=== PATIENT | female | born 1970 | race Hispanic/Latino ===

== ENCOUNTER 2017-10-10 11:12 | Day surgery (SDC) | payer BC ==
[2017-10-10] MEDS ORDERED: Ringers Lactate 1,000 ML IV ONE (11:43)
[2017-10-10] MEDS ORDERED: CEFAZOLIN/SWI 1gm 1 GM/10 ML SYR ONE (11:43)
--- NOTE | 2017-10-10 11:51 | RAD REPORT ---
EXAM DESCRIPTION: RAD - Chest Pa And Lat (2 Views) - 10/10/2017 11:45 am CLINICAL HISTORY: Abdominal pain. COMPARISON: None. FINDINGS: The lungs are clear. The heart is normal in size. No displaced fractures. IMPRESSION: No acute or concerning finding suspected.
[2017-10-10 11:59] LABS: Potassium 3.9 mEq/L (3.6-5.0)
[2017-10-10 12:15] LABS: Absolute Lymphocytes (CBC) 1.2 K/uL (0.7-4.9); Absolute Monocytes 0.7 K/uL (0.1-1.3); Absolute Neutrophil 9.6 K/uL (1.8-8.0); Basophils % 0.4 % (0-1.3); Eosinophils % 0.5 % (0-4.4); Hematocrit 39.6 % (36.0-45.0); Lymphocytes % 10.3 % (15.3-44.8); MCV 92.4 fL (80-100); MPV 11.5 fL (7.6-11.3); Monocytes % 5.7 % (3.3-12.3); RBC Red Blood Cell Count 4.28 M/uL (3.86-4.86)
[2017-10-10] MEDS ORDERED: MIDAZOLAM HCL 2 MG/2 ML INJ ONE (12:37)
[2017-10-10] MEDS ORDERED: PROPOFOL 200 MG/20 ML VIAL IV ONE (12:41)
[2017-10-10] MEDS ORDERED: LIDOCAINE 2% MPF 5 ML VIAL ONE (12:42)
[2017-10-10] MEDS ORDERED: FENTANYL CITR 100 MCG/2 ML ONE (12:43)
[2017-10-10] MEDS ORDERED: MEPERIDINE HCL 25 MG/0.5 ML ONE (13:40)
[2017-10-10] MEDS ORDERED: PROMETHAZINE 25 MG/ML VIAL ONE (13:40)
--- NOTE | 2017-10-10 14:01 | P.BOP ---
Preoperative diagnosis: Right buttock abscess, cellulitis Postoperative diagnosis: same Primary procedure: Incision and drainage of complex right buttock abscess 14 x 6 x3cm Estimated blood loss: <20cc Specimen: pus and necrotic tissue Findings: see dictation Anesthesia: General Complications: None Drain(s): Other Transferred to: Recovery Room Condition: Good
--- NOTE | 2017-10-10 14:35 | EKG ---
Test Date: 2017-10-10 Test Time: 11:16:56 Call Center Receptionist: CASEY MEASUREMENT RESULTS: Intervals: Rate: 78 CT: 140 QRSD: 92 QT: 378 QTc: 430 [place]: P: 21 CT: 140 QRS: 15 T: 9 INTERPRETIVE STATEMENTS: Normal sinus rhythm Normal ECG Compared to ECG 10/18/2004 00:00:00 Sinus bradycardia no longer present Electronically Signed On 10-10-17 14:33:45 CDT by Jose Larson
[2017-10-10] MEDS ORDERED: HYDROCODONE/APAP 5/325 MG TAB ONE (14:40)
--- NOTE | 2017-10-15 17:25 | OP ---
Date of Procedure: 10/10/2017 Surgeon: Dao Mahajan MD Preoperative Diagnoses: Right buttock abscess and cellulitis. Postoperative Diagnoses: Right buttock abscess and cellulitis. Procedure: Incision and drainage of a complex right buttock abscess, 14 x 6 x 3 cm. Estimated Blood Loss: Less than 20 cc. Specimen: Pus and necrotic tissue. Findings: Deep complex right buttock abscess. Anesthesia: General plus local. Indications: This is the case of a female, who comes to us with above diagnosis. Fully explained th e benefits, alternatives, and risks of incision and drainage of the abscess in the buttocks, which in cluded, but not limited to infection, bleeding, damage to adjacent structures, anesthesia complicatio n, recurrence, NC, and even . She also understands this may not relieve any symptoms. She migh t need more than one surgical intervention. She also understands the importance of wound care and fo llowup in our office. She understood and signed a consent. Description Of Procedure: The patient was brought to the operating room and placed in supine positio n. Anesthesia was given without complications. The patient was placed in lateral decubitus position with proper protection. The right buttocks were prepped and draped in a sterile fashion. A time-ou t was called. An incision was made in that area. Immediately, we obtain pus. There was some necrot ic tissue. This goes deep into the buttock region, does not seem to be traveling into the rectum, bu t it goes near the muscle with the fascia, so that was removed, a part of the fascia and the fat, but muscle was not penetrate or removed. The area was irrigated. Hemostasis was obtained. After that, the area was packed with wet-to-dry dressing. The patient tolerated the procedure well. The patien t was sent to recovery in stable condition. NIKITA/MASSIMO Voice ID: [id number] Report ID: [id number]
== END 2017-10-10 15:50 | disposition home or self-care (01) ==
LOC: OR 11:12
PROVIDERS: ATTEND Surgery
PROC: 0J990ZZ Drainage of Buttock Subcutaneous Tissue and Fascia, Open Approach (ICD-10-PCS; principal; 2017-10-10 12:30)
DX: L02.31 Cutaneous abscess of buttock (principal); I10 Essential (primary) hypertension; Z82.49 Family history of ischemic heart disease and other diseases of the circulatory system; Z83.3 Family history of diabetes mellitus
CPT/HCPCS: 36415; 71046; 80048; 81025; 85025; 87070; 87075; 87077; 87186; 87205; 88304; 93005; J0690; J2175; J2250; J2550; J3010

== ENCOUNTER 2018-07-16 12:44 | Emergency (ER) | payer BC ==
--- NOTE | 2018-07-16 13:50 | EDPHYS ---
Physician Documentation [facility] Name: Bety Amador Age: 48 yrs Sex: Female : 1970 Arrival Date: 07/16/2018 Time: 12:47 Bed 12 Private MD: Julia Johnson K ED Physician Efrain Dallas HPI: 07/16 13:42 This 48 yrs old Female presents to ER via Ambulatory with complaints of calf rn injury. 13:42 The patient presents with an injury, pain. The complaints affect the right calf. Onset: rn The symptoms/episode began/occurred just prior to arrival. Modifying factors: The symptoms are alleviated by nothing. the symptoms are aggravated by weight bearing. Severity of symptoms: At their worst the symptoms were moderate, in the emergency department the symptoms are unchanged. The patient has not experienced similar symptoms in the past. Reports making her bed, was plantar flexed and "reaching", heard a pop, hard to walk now, + focal swelling right medial calf. No direct trauma. No achilles tenderness. . 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 - Social history:: Smoking status: Patient/guardian denies using tobacco. - Ebola Screening: : Patient negative for fever greater than or equal to 101.5 degrees Fahrenheit, and additional compatible Ebola Virus Disease symptoms Patient denies exposure to infectious person Patient denies travel to an Ebola-affected area in the 21 days before illness onset No symptoms or risks identified at this time. - Family history:: not pertinent. - Hospitalizations: : No recent hospitalization is reported. ROS: 13:44 Constitutional: Negative for fever, chills, and weight loss, MS/Extremity: + right calf rn pain Neuro: Negative for weakness, numbness, tingling Exam: 13:44 Constitutional: This is a well developed, well nourished patient who is awake, alert, rn and in no acute distress. MS/ Extremity: Pulses equal, no cyanosis. Neurovascular intact. + painful ROM but has intact active and passive plantar flexion/extension, + focal tenderness right medial/proximal calf muscle with lump palpated. Vital Signs: 13:32 BP 132 / 91; Pulse 71; Resp 18; Temp 97.3; Pulse Ox 99% ; Weight 77.11 kg; Height 5 ft. sg 1 in. (154.94 cm); Pain 6/10; 13:32 Body Mass Index 32.12 (77.11 kg, 154.94 cm) sg MDM: 13:44 Differential diagnosis: tendonitis, calf strain/pulled muscle/rupture. Data reviewed: rn vital signs, nurses notes, and as a result, I will discharge patient. Counseling: I had a detailed discussion with the patient and/or guardian regarding: the historical points, exam findings, and any diagnostic results supporting the discharge/admit diagnosis, the need for outpatient follow up, to return to the emergency department if symptoms worsen or persist or if there are any questions or concerns that arise at home. Special discussion: I discussed with the patient/guardian in detail that at this point there is no indication for admission to the hospital. It is understood, however, that if the symptoms persist or worsen the patient needs to return immediately for re-evaluation. Based on the history and exam findings, there is no indication for further emergent testing or inpatient evaluation. I discussed with the patient/guardian the need to see the orthopedic surgeon for further evaluation of the symptoms. 13:48 Patient medically screened. rn 07/16 13:42 Order name: Splint - Posterior Leg; Complete Time: 14:58 rn 07/16 13:42 Order name: Crutches; Complete Time: 14:58 rn Administered Medications: No medications were administered Disposition: 07/16/18 13:48 Discharged to Home. Impression: Strain of other muscle(s) and tendon(s) of posterior muscle group at lower leg level, right leg. - Condition is Stable. - Discharge Instructions: Muscle Strain, RICE for Routine Care of Injuries. - Prescriptions for Tylenol- Codeine #3 300-30 mg Oral Tablet - take 1 tablet by ORAL route every 6 hours As needed; 15 tablet. Cyclobenzaprine 5 mg Oral Tablet - take 1 tablet by ORAL route 3 times per day As needed; 15 tablet. - Medication Reconciliation Form, Thank You Letter, Antibiotic Education, Prescription Opioid Use, Work release form form. - Follow up: Julia Johnson MD; When: As needed; Reason: Recheck today's complaints, Re-evaluation by your physician. Follow up: Russell Hyde MD; When: As needed; Reason: Recheck today's complaints, Re-evaluation by your physician. - Problem is new. - Symptoms have improved. Signatures: Joshua Crowley RN RN sg Efrain Dallas MD MD rn Baxter, Heather, RN RN hb Corrections: (The following items were deleted from the chart) 15:12 13:48 07/16/2018 13:48 Discharged to Home. Impression: Strain of other muscle(s) and hb tendon(s) of posterior muscle group at lower leg level, right leg. Condition is Stable. Forms are Medication Reconciliation Form, Thank You Letter, Antibiotic Education, Prescription Opioid Use. Follow up: Dr. Russell Hyde; When: As needed; Reason: Recheck today's complaints, Re-evaluation by your physician. Problem is new. Symptoms have improved. rn
--- NOTE | 2018-07-16 13:50 | ER ---
Nurse's Notes [facility] Name: Bety Amador Age: 48 yrs Sex: Female : 1970 Arrival Date: 07/16/2018 Time: 12:47 Bed 12 Private MD: Julia Johnson K Diagnosis: Strain of other muscle(s) and tendon(s) of posterior muscle group at lower leg level, right leg Presentation: 07/16 13:28 Presenting complaint: Patient states: Left sided calf pain, was making the bed when I sg felt a pop in the calf, pain in the left calf with swelling, worsens with weightbearing and walking. Transition of care: patient was not received from another setting of care. Onset of symptoms was July 16, 2018. Risk Assessment: Do you want to hurt yourself or someone else? Patient reports no desire to harm self or others. Initial Sepsis Screen: Does the patient meet any 2 criteria? No. Patient's initial sepsis screen is negative. Does the patient have a suspected source of infection? No. Patient's initial sepsis screen is negative. Care prior to arrival: None. 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 - Social history:: Smoking status: Patient/guardian denies using tobacco. - Ebola Screening: : Patient negative for fever greater than or equal to 101.5 degrees Fahrenheit, and additional compatible Ebola Virus Disease symptoms Patient denies exposure to infectious person Patient denies travel to an Ebola-affected area in the 21 days before illness onset No symptoms or risks identified at this time. - Family history:: not pertinent. - Hospitalizations: : No recent hospitalization is reported. Screenin:35 Abuse screen: Denies threats or abuse. Denies injuries from another. Nutritional hb screening: No deficits noted. Tuberculosis screening: No symptoms or risk factors identified. Fall Risk None identified. Assessment: 14:30 General: Appears in no apparent distress. Behavior is calm, cooperative. Pain: Pain hb currently is 6 out of 10 on a pain scale. Neuro: Level of Consciousness is awake, alert, obeys commands, Oriented to person, place, time, situation. Cardiovascular: Capillary refill < 3 seconds Patient's skin is warm and dry. Respiratory: Airway is patent Respiratory effort is even, unlabored, Respiratory pattern is regular, symmetrical. GI: No signs and/or symptoms were reported involving the gastrointestinal system. : No signs and/or symptoms were reported regarding the genitourinary system. EENT: No signs and/or symptoms were reported regarding the EENT system. Derm: Skin is intact, is healthy with good turgor. Musculoskeletal: Reports left lower leg pain. Vital Signs: 13:32 BP 132 / 91; Pulse 71; Resp 18; Temp 97.3; Pulse Ox 99% ; Weight 77.11 kg; Height 5 ft. sg 1 in. (154.94 cm); Pain 6/10; 13:32 Body Mass Index 32.12 (77.11 kg, 154.94 cm) sg ED Course: 12:47 Patient arrived in ED. as 12:48 Julia Johnson MD is Private Physician. as 13:28 Arm band placed on. sg 13:29 Triage completed. sg 13:40 Efrain Dallas MD is Attending Physician. rn 13:47 Julia Johnson MD is Referral Physician. rn 13:47 Referral Physician role handed off by Julia Johnson MD rn 13:47 Russell Hyde MD is Referral Physician. rn 14:35 Patient has correct armband on for positive identification. Call light in reach. hb 15:12 No provider procedures requiring assistance completed. Patient did not have IV access hb during this emergency room visit. Administered Medications: No medications were administered Outcome: 13:48 Discharge ordered by MD. rn 15:10 Discharged to home with crutches, with family. hb 15:10 Condition: stable 15:10 Discharge instructions given to patient, Instructed on discharge instructions, follow up and referral plans. medication usage, crutch walking, Demonstrated understanding of instructions, follow-up care, medications, wound care, splint care, Prescriptions given X 2. 15:12 Patient left the ED. hb Signatures: Joshua Crowley RN RN Carmen Gibbons Roman, MD MD rn Baxter, Heather, JUANITA RN hb
== END 2018-07-16 15:12 | disposition home or self-care (01) ==
LOC: ER 12:44
DX: S86.111A Strain of other muscle(s) and tendon(s) of posterior muscle group at lower leg level, right leg, initial encounter (principal); X58.XXXA Exposure to other specified factors, initial encounter; I10 Essential (primary) hypertension; Z79.899 Other long term (current) drug therapy
CPT/HCPCS: 99283

== ENCOUNTER 2019-05-21 21:33 | Emergency (ER) | payer BC ==
--- OUTSIDE RECORDS SUMMARY | 2019-05-21 21:35 | XMS REPORT ---
:1970 Author Organization e[employer] Care Team Providers Name Role Phone Russell Hyde Provider Role Unavailable Allergies, Adverse Reactions, Alerts Substance Reaction Event Type N.K.D.A. Info Not Available Non Drug Allergy Problems Problem Type Condition Code Onset Dates Condition Status Assessment Pain in right lower leg M79.661 Active Assessment Strain of right gastrocnemius S86.111A Active muscle, initial encounter Medications Medication Code Code Instructions Start End Status Dosage System Date Date Cyclobenzaprine ND 04061430441 5 MG Oral Active (Prior HCl Auth: Rx Ref#:[id number]) Lisinopril-Hydroch ND 31447609571 20-12.5 MG Oral Active (Prior lorothiazide Auth: Rx Ref#:[id number]) Atorvastatin ND 06846810544 10 MG Oral Active (Prior Calcium Auth: Rx Ref#:[id number]) Xyzal ND 0 Jul 18, Active not 2019 defined Acetaminophen-Code ND 79263641925 300-30 MG Oral Active (Schedule ine #3 III Drug) (Prior Auth: Rx Ref#:[id number]) Results No Known Results Summary Purpose eClinicalWorks Submission
[2019-05-21] MEDS ORDERED: DERMABOND SKIN ADHESIVE TOP ONE (22:47)
[2019-05-21] MEDS ORDERED: IBUPROFEN 400 MG TAB ONE (22:47)
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
--- NOTE | 2019-05-21 23:03 | ER ---
Nurse's Notes [facility] Name: Bety Amador Age: 49 yrs Sex: Female : 1970 Arrival Date: 05/21/2019 Time: 21:36 Bed 19 Private MD: Diagnosis: Right middle finger laceration Presentation: 05/21 21:41 Presenting complaint: Patient states: " I was trying to get silverware out of the aj1 drawer and the knife stuck into my finger" Laceration noted to right middle finger, bleeding lightly. Transition of care: patient was not received from another setting of care. Complicating Factors: There are no complicating factors for this patient. Onset of symptoms was May 21, 2019 at 20:00. Risk Assessment: Do you want to hurt yourself or someone else? Patient reports no desire to harm self or others. Initial Sepsis Screen: Does the patient meet any 2 criteria? No. Patient's initial sepsis screen is negative. Does the patient have a suspected source of infection? Yes: Skin breakdown/wound. Care prior to arrival: None. 21:41 Method Of Arrival: Ambulatory [facility] 21:41 Acuity: LAUREN 4 aj1 Triage Assessment: 21:43 General: Appears in no apparent distress. comfortable, Behavior is calm, cooperative, aj1 appropriate for age. Pain: Complains of pain in palmar aspect of middle phalanx of right middle finger Pain currently is 6 out of 10 on a pain scale. Neuro: Level of Consciousness is awake, alert, obeys commands. Cardiovascular: Patient's skin is warm and dry. Respiratory: Airway is patent Respiratory effort is even, unlabored, Respiratory pattern is regular, symmetrical. Injury Description: Laceration sustained to palmar aspect of proximal phalanx of right middle finger is bleeding a small amount. 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 - Social history:: Smoking status: Patient/guardian denies using tobacco. - Ebola Screening: : Patient denies travel to an Ebola-affected area in the 21 days before illness onset. - Family history:: not pertinent. - Hospitalizations: : No recent hospitalization is reported. Screenin:59 Abuse screen: Denies threats or abuse. Denies injuries from another. Nutritional wh screening: No deficits noted. Tuberculosis screening: No symptoms or risk factors identified. Fall Risk None identified. Assessment: 21:58 General: Appears in no apparent distress. Behavior is calm, cooperative, appropriate wh for age. Pain: Denies pain. Neuro: Level of Consciousness is awake, alert, obeys commands, Oriented to person, place, time, situation, Appropriate for age. Cardiovascular: Capillary refill < 3 seconds. Respiratory: Airway is patent Respiratory effort is even, unlabored, Respiratory pattern is regular, symmetrical. GI: Abdomen is flat, non-distended. : No signs and/or symptoms were reported regarding the genitourinary system. EENT: No signs and/or symptoms were reported regarding the EENT system. Derm: Skin is intact, is healthy with good turgor, Skin is pink, warm \\T\\ dry. normal. Musculoskeletal: Circulation, motion, and sensation intact. Injury Description: Laceration sustained to palmar aspect of middle phalanx of right middle finger is clean, 0.5 to 2.5 cm long, not bleeding. Vital Signs: 21:43 BP 144 / 70; Pulse 81; Resp 18; Temp 97.1; Pulse Ox 98% on R/A; Weight 76.2 kg (R); aj1 Height 5 ft. 1 in. (154.94 cm) (R); Pain 6/10; 21:43 Body Mass Index 31.74 (76.20 kg, 154.94 cm) aj1 ED Course: 21:36 Patient arrived in ED. ds1 21:42 Triage completed. aj1 21:43 Arm band placed on Patient placed in an exam room. aj1 21:58 Isaac Arguello is Primary Nurse. 21:59 Patient has correct armband on for positive identification. Bed in low position. Call light in reach. Side rails up X 1. Pulse ox on. NIBP on. 22:12 Saturnino Das MD is Attending Physician. wa 22:48 Assist provider with laceration repair on palmar aspect of middle phalanx of right middle finger that was 2.5 cm. or less using Dermabond. Set up tray. Performed by Saturnino Das MD Dressed with 4X4s, Patient tolerated well. Patient did not have IV access during this emergency room visit. Administered Medications: 22:46 Drug: Motrin 400 mg Route: PO; 22:57 Follow up: Response: No adverse reaction Outcome: 22:56 Discharged to home ambulatory, with family. 22:56 Condition: stable 22:56 Discharge instructions given to patient, Instructed on discharge instructions, follow up and referral plans. medication usage, wound care, Demonstrated understanding of instructions, follow-up care, medications, wound care, Prescriptions given X 1. 23:02 Discharge ordered by . brionna 23:18 Patient left the ED. Signatures: Cintia House RN RN ajMarlene Ashford ds1 Isaac Arguello Saturnino Das MD MD wa Corrections: (The following items were deleted from the chart) 23:18 22:56 Discharge instructions given to patient, Instructed on discharge instructions, follow up and referral plans. wound care, Demonstrated understanding of instructions, follow-up care, wound care,
[2019-05-21 23:37] VITALS: BP 144/70; TEMP 97.1; O2SAT 98
== END 2019-05-21 23:18 | disposition home or self-care (01) ==
LOC: ER 21:33
PROC: 0JQJ0ZZ Repair Right Hand Subcutaneous Tissue and Fascia, Open Approach (ICD-10-PCS; principal; 2019-05-21)
DX: S61.212A Laceration without foreign body of right middle finger without damage to nail, initial encounter (principal); I10 Essential (primary) hypertension; W26.0XXA Contact with knife, initial encounter; Y93.89 Activity, other specified; Y92.010 Kitchen of single-family (private) house as the place of occurrence of the external cause
CPT/HCPCS: 99284